=== PATIENT | male | born 1980 | race African-American/Black ===

== ENCOUNTER 2022-08-25 22:45 | Emergency (ER) | payer OTHER, SELFPAY ==
[2022-08-25 22:47] VITALS: BP 168/103; PULSE 105; RESP 16; TEMP 36.6; O2SAT 98; BMI 39.1
--- NOTE | 2022-08-25 23:20 | EX.ED.DYSGE1 ---
HPI History of Present Illness Chief Complaint: Seizure Informant: patient and spouse/S.O. Narrative Narrative: Patient is a 42-year-old male with history of possible sleep apnea (never officially diagnosed) presenting after an episode of seizure-like activity. 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 He was seen on the couch with his daughter and his was talking to them. Suddenly his eyes rolled back into his head and his states he was just shaking all over including his head. He then lurched forward and fell off the couch. Patient then sprang up and walked outside into the cold air. states he did not speak the entire time. The whole episode lasted for 2 minutes and the shaking itself was only couple seconds. Patient states he remembers hearing his and daughter call out to him but could not respond. He states he just felt really hot when he was on the ground and then went outside to cool off. His wanted him to be checked out. Patient denies any history of any seizure activity. He states he feels fine now. Is no other complaints at this time [facility] Medical History Smoker Home Medications ferrous sulfate 325 mg (65 mg iron) tablet 325 mg PO BID #30 tabs 08/26/22 [Rx Last Taken Unknown] omeprazole 20 mg capsule,delayed release 20 mg PO BID #60 caps 08/26/22 [Rx Last Taken Unknown] Allergy/AdvReac Type Severity Reaction Status Date / Time No Known Allergies Allergy Verified 08/25/22 22:51 Social History Smoking Status: Current every day smoker tobacco type: e-cigarettes ROS ROS ED Constitutional Constitutional ED: Reports other Details: Syncopal episode versus seizure-like activity ; Denies chills or fever(s) Eyes Eyes: Denies change in vision ENT ENT ED: Denies ear pain, rhinorrhea or sore throat Cardiovascular Cardiovascular: Denies chest pain or palpitations Respiratory/Chest Respiratory/Chest: Denies cough or dyspnea Gastrointestinal Gastrointestinal: Denies abdominal pain, melena, nausea or vomiting Genitourinary Genitourinary ED: Denies dysuria or hematuria Musculoskeletal Musculoskeletal: Denies arthralgias or myalgias Integumentary Denies rash Neurologic Neurologic: Denies headache(s) or weakness Psychiatric Psychiatric: Denies anxiety Hematologic/Lymphatic Hematologic/Lymphatic: Denies easy bleeding or easy bruising EXAM Physical Exam Const Vital Signs: 08/25/22 22:47 08/26/22 00:38 Temperature 97.8 F Temperature Source Temporal Pulse Rate 105 H Respiratory Rate 16 Blood Pressure 168/103 H Blood Pressure Mean 124 Pulse Ox 98 99 Oxygen Delivery Method Room Air Room Air Positive well nourished and well developed General Appearance ED: well developed and NAD; Negative for pallor HEENT Reports dry mucous membranes Mouth ED: Yes dry mucous membranes Mouth: dry mucous membranes Eyes PERRL and EOMs intact bilaterally Neck supple and no JVD Chest Wall inspection of chest normal and palpation of chest normal Resp normal respiratory effort and clear to auscultation bilaterally Cardio regular rate, regular rhythm and no murmurs GI normal to inspection, nondistended, normoactive bowel sounds and non-tender Palpation: soft; Negative for guarding Extremity normal to inspection General Extremety ED: Negative for edema or tenderness General Extremity: Negative for edema Neuro oriented x3, CN's II-XII intact bilaterally and no sensory deficits noted Sensorium / Orientation: alert Motor Exam: strength 5/5 throughout; Negative for general weakness Psych mental status grossly normal Skin no wounds General Skin Exam: Negative for pallor MDM MDM MDM Narrative Medical decision making narrative: Patient is evaluated for an episode of his eyes rolling back and questionable seizure activity versus a syncopal episode. Patient did not have an associated postictal phase and remembers the event. His did state that he was shaking all over. Its not clear if this was truly seizure activity versus myoclonic jerks. Patient does not receive regular medical care. Cardiac work-up for potential syncopal episode especially while sitting down as well as a CT of the brain is obtained. CT of the brain does not show any acute process. Patient CBC is remarkable for microcytic anemia however it is mild. Do not think this causes presentation today. CMP unremarkable. Patient's urinalysis is normal. Alcohol level is mildly elevated consistent patient having some beers throughout the day which he had previously told me about. Clinically patient does not appear intoxicated. Patient is a normal neurologic exam. No further episodes while in the emergency room. Patient is given a liter of IV fluids as he is mildly tachycardic upon arrival. Patient is a high red meat diet and when asked about any black or blood in her stool. Patient states that a couple weeks ago he was having some black stools and does get intermittent heartburn. He is not currently having any dark stools and has normal BUN to creatinine ratio. Patient will be started on iron supplement as well as a PPI and given referral for GI. He is also given a referral for primary care doctor. At this time I do not think patient requires admission to the hospital. I do think you benefit from outpatient GI as well as primary care follow-up. Patient agreeable this plan of care. Patient remains hemodynamically stable in the emergency room. Counseled on results and plan of care. Patient verbalizes agreement with this. Lab Data Attestation: I reviewed the patient's lab results. Labs: Laboratory Results - last 24 hr 08/25/22 08/25/22 08/25/22 23:23 23:23 23:26 WBC 8.7 RBC 5.06 Hgb 11.7 L Hct 38.5 L MCV 76.1 L MCH 23.1 L MCHC 30.4 L RDW Std Deviation 55.0 H RDW Coeff of Chuy 20.6 H Plt Count 422 MPV 9.4 Immature Gran % (Auto) 0.800 Neut % (Auto) 61.9 Lymph % (Auto) 26.7 Troup % (Auto) 8.4 Eos % (Auto) 1.3 Baso % (Auto) 0.9 Absolute Neuts (auto) 5.4 Absolute Lymphs (auto) 2.33 Nucleated RBC % 0 Anisocytosis 2+ Microcytosis 1+ Sodium 137 Potassium 3.4 L Chloride 105 Carbon Dioxide 22.0 Anion Gap 10 BUN 13 Creatinine 1.15 Estim Creat Clear Calc 81.97 Est GFR (MDRD) Af Amer 89 Est GFR (MDRD) Non-Af 73 BUN/Creatinine Ratio 11.3 Glucose 116 H Calcium 8.6 Total Bilirubin 0.20 AST 22 ALT 34 Alkaline Phosphatase 76 Troponin I High Sens 6 Total Protein 7.8 Albumin 4.0 Globulin 3.8 Albumin/Globulin Ratio 1.1 Urine Color Urine Clarity Urine pH Ur Specific [place] Urine Protein Urine Glucose (UA) Urine Ketones Urine Occult Blood Urine Nitrite Urine Bilirubin Urine Urobilinogen Ur Leukocyte Esterase Urine RBC Urine WBC Ur Squamous Epith Cells Urine Bacteria Urine Mucus Ethyl Alcohol 67.0 08/26/22 08/26/22 00:10 01:57 WBC RBC Hgb Hct MCV MCH MCHC RDW Std Deviation RDW Coeff of Chuy Plt Count MPV Immature Gran % (Auto) Neut % (Auto) Lymph % (Auto) Troup % (Auto) Eos % (Auto) Baso % (Auto) Absolute Neuts (auto) Absolute Lymphs (auto) Nucleated RBC % Anisocytosis Microcytosis Sodium Potassium Chloride Carbon Dioxide Anion Gap BUN Creatinine Estim Creat Clear Calc Est GFR (MDRD) Af Amer Est GFR (MDRD) Non-Af BUN/Creatinine Ratio Glucose Calcium Total Bilirubin AST ALT Alkaline Phosphatase Troponin I High Sens 7 Total Protein Albumin Globulin Albumin/Globulin Ratio Urine Color Yellow Urine Clarity Clear Urine pH 6.5 Ur Specific [place] 1.010 Urine Protein Negative Urine Glucose (UA) Normal Urine Ketones Negative Urine Occult Blood Negative Urine Nitrite Negative Urine Bilirubin Negative Urine Urobilinogen Normal Ur Leukocyte Esterase Negative Urine RBC 0 SEEN Urine WBC 0 SEEN Ur Squamous Epith Cells 0 SEEN Urine Bacteria 0 SEEN Urine Mucus 0 SEEN Ethyl Alcohol Radiography Chest X-Ray - ED: 2 View, Read by ED Physician, Read by Radiologist and Normal Diagnostic Testing: Clinical Impression(s) from Imaging Studies Chest X-Ray 08/25/22 23:59 IMPRESSION: No radiographic evidence of acute cardiopulmonary disease. Electronically Signed: Michael Reed MD at 0:16 EST , Brain CT 08/26/22 00:00 IMPRESSION: Negative head/brain CT without intravenous contrast. Electronically Signed: Michael Reed MD at 0:16 EST , Rhythm Strip Rhythm Strip: Sinus Rhythm Rate: 89 Ectopy: None EKG Initial EKG: Attestation: I personally reviewed and interpreted this EKG as follows: Interpretation: Sinus Rhythm Comments: Normal sinus rhythm at a rate of 89 bpm Normal axis Normal intervals Normal ST segments Discharge Plan Triage Chief Complaint: Seizure ED Provider: Fernanda Vance Dx/Rx/DC Orders Clinical Impression: Microcytic anemia, Seizure-like activity Instructions: ED Anemia, Iron-Deficiency (Adult), ED Fainting, Uncertain Cause Prescriptions: New ferrous sulfate 325 mg (65 mg iron) tablet 325 mg PO BID Qty: 30 0RF omeprazole 20 mg capsule,delayed release(DR/EC) 20 mg PO BID Qty: 60 0RF Primary Care Provider: Care Physician,No Primary Referrals: Svetlana Sen MD [Med Staff - [employer]] - As soon as possible Friend,AnuragDO [Med Staff - Active Staff] - As soon as possible Care Physician,No Primary [Primary Care Provider] - Activity Restrictions/Additional Instructions: The exact cause of your episode today is not clear. Your work-up was largely normal. You were found to have a slight iron deficiency anemia and given your report of black stools I am worried that you might have a small ulcer or some bleeding in your upper GI tract. For that reason you are started on iron supplements as well as an antacid. You been given a referral for GI doctor as well as her primary care doctor. Please return to the emergency room if you have any progression or recurrent symptoms however at this time I think you are safe to go home. Disposition Disposition: Home, Self Care
--- NOTE | 2022-08-25 23:59 | RAD_ITS ---
EXAM: XR CHEST, 1 VIEW CLINICAL INDICATION: seizure like activity TECHNIQUE: Frontal view of the chest. This report was created using [employer] report generation technology. COMPARISON: None. FINDINGS: LUNGS AND PLEURAL SPACES: Unremarkable. No consolidation or edema. No pneumothorax. No effusion. HEART: Unremarkable. Cardiac silhouette not enlarged. MEDIASTINUM: Central airways and mediastinal contour are unremarkable. BONES/JOINTS: Unremarkable. SOFT TISSUES: Unremarkable. RAD/Chest 1 View (Portable) IMPRESSION: No radiographic evidence of acute cardiopulmonary disease. Electronically Signed: Michael Reed MD at 0:16 EST ,
[2022-08-26] LABS: Absolute Lymphocyte Count 2.33 X10^3/uL (0.83-4.51); Absolute Neutrophil Count 5.4 X10^3/uL (2.0-7.7); Basophil# 0.08 X10^3/uL; Basophil% 0.9 % (0-1); Eosinophil# 0.11 X10^3/uL; Eosinophils% 1.3 % (0-5); Hematocrit 38.5 % (40-54); Hemoglobin 11.7 g/dL (13.0-16.5); Lymphocyte # 2.33 X10^3/ul (0.83-4.51); Lymphocyte % 26.7 % (19-41); Mean Corp Hgb Conc 30.4 g/dL (32-36); Mean Corpuscular Hgb 23.1 pg (27.0-32.0); Mean Corpuscular Volume 76.1 fL (80-94); Mean Platelet Vol. 9.4 fl (6.2-12.0); Monocyte# 0.73 X10^3/uL; Monocyte% 8.4 % (0-10); NRBC Flagged by Analyzer 0 % (0-5); Neutrophil # 5.41 X10^3/uL (2.7-7.7); Neutrophil % 61.9 % (47-70); POSITIVE MORPHOLOGY YES; Platelet Count 422 K/mm3 (150-450); RBC Distribution Width CV 20.6 % (11.6-14.6); Red Blood Count 5.06 M/mm3 (4.6-6.2); White Blood Count 8.7 K/mm3 (4.4-11.0)
--- NOTE | 2022-08-26 | CT_ITS ---
EXAM: CT HEAD WITHOUT INTRAVENOUS CONTRAST CLINICAL INDICATION: seizure like activity TECHNIQUE: Multiple axial images were obtained of the head without intravenous contrast. This CT exam was performed using one or more of the following dose reduction techniques: automated exposure control, adjustment of the mA and/or kV according to patient size, and/or use of iterative reconstruction technique. This report was created using [employer] report generation technology. RADIATION DOSE: CTDIvol = 44.99 mGy, DLP = 846.73 mGy-cm. COMPARISON: None. FINDINGS: BRAIN AND EXTRA-AXIAL SPACES: Unremarkable. No intra- or extra-axial hemorrhage. No evidence of acute infarct. No intracranial mass or mass effect. There is preservation of the leary/white matter interface. Posterior fossa structures are unremarkable. Ventricles are appropriate for age. No hydrocephalus. Basal cisterns are patent. BONES/JOINTS: Unremarkable. No discrete lytic or blastic abnormalities. SINUSES: Unremarkable as visualized. Clear. MASTOID AIR CELLS: Unremarkable. Clear. ORBITS: Visualized globes, extraocular muscles, optic nerves and retrobulbar fat appear unremarkable. CT/Brain/Head without Contrast IMPRESSION: Negative head/brain CT without intravenous contrast. Electronically Signed: Michael Reed MD at 0:16 EST ,
[2022-08-26 00:04] LABS: Differential Indicated SCAN CRITERIA MET
[2022-08-26] MEDS: 0.9% Normal Saline 1,000 ML 1000 ML IV (00:25)
[2022-08-26 00:32] LABS: ALB/GLOB Ratio 1.1 RATIO (0.9-2.4); AST(SGOT) 22 U/L (15-37); Alanine Aminotransfer ALT/SGPT 34 U/L (16-61); Alkaline Phosphatase 76 U/L (45-117); Anion Gap 10 (5-15); BUN 13 mg/dL (7-18); BUN/Creat Ratio 11.3 RATIO (10-20); Calcium,Total 8.6 mg/dL (8.5-10.1); Chloride 105 mmol/L (98-107); Creatinine, Serum 1.15 mg/dL (0.70-1.30); EST Glomerular Filtration Rate 73 mL/min (>60); Est Glom Filt Rate - Afr Amer 89 mL/min (>60); Estimated Creatinine Clearance 81.97 ml/min; Globulin 3.8 g/dL (2.2-4.2); Glucose 116 mg/dL (74-106); Potassium 3.4 mmol/L (3.5-5.1); Protein, Total 7.8 g/dL (6.4-8.2); Sodium Level 137 mmol/L (136-145); Troponin-I HS (w/2H Reflex) 6 pg/mL (3.0-78.0)
[2022-08-26 00:38] VITALS: O2SAT 99
[2022-08-26 00:40] LABS: Bacteria 0 SEEN /hpf (None Seen); Mucous, Urine 0 SEEN /hpf (<or=2+); Red Blood Cells-Urine 0 SEEN /hpf (0-5); Squamous Epithelial Cells - UA 0 SEEN /hpf (0-5); White Blood Cells 0 SEEN /hpf (0-5)
[2022-08-26 00:48] LABS: Anisocytosis 2+; Microcytosis 1+
[2022-08-26 00:49] LABS: Color, Urine Yellow (Yellow); Glucose, Dipstick Normal (Normal); Ketone-Dipstick Negative (Negative); Leukocyte Esterase-Dipstick Negative /ul (Negative); Nitrite-Dipstick Negative (Negative); Occult Blood-Urine Negative /ul (Negative); Protein-Dipstick Negative (Negative); Urine Bilirubin Dipstick Negative (Negative); Urine Clarity Clear (Clear); Urine Urobilinogen Normal (Normal); Urine pH 6.5 (5.0 - 8.0)
[2022-08-26 01:52] LABS: Reflex Troponin-HS? (from REC) Y
[2022-08-26 02:26] LABS: Troponin-I HS 7 pg/mL (3.0-78.0)
[2022-08-26 02:55] VITALS: BP 150/106; PULSE 76; RESP 14; O2SAT 97
== END 2022-08-26 02:56 | disposition home or self-care (01) ==
PROVIDERS: Emergency Provider Emergency Medicine; Visit Provider Emergency Medicine
DX: R56.9 Unspecified convulsions (principal); D50.9 Iron deficiency anemia, unspecified; F17.290 Nicotine dependence, other tobacco product, uncomplicated
CPT/HCPCS: 70450; 71045; 80053; 81001; 82077; 84484; 85025; 93005; 96360; 96361; 99284; J7030; A4216

== ENCOUNTER 2024-02-16 19:03 | Emergency (ER) | payer OTHER, SELFPAY ==
[2024-02-16 19:04] VITALS: BP 181/116; PULSE 97; RESP 18; TEMP 36.4; O2SAT 99; BMI 37.5
[2024-02-16 19:57] LABS: Bacteria 0 SEEN /hpf (None Seen); Red Blood Cells-Urine 0 SEEN /hpf (0-5); White Blood Cells 0 SEEN /hpf (0-5)
[2024-02-16 20:00] LABS: Color, Urine Yellow (Yellow); Glucose, Dipstick Normal (Normal); Leukocyte Esterase-Dipstick Negative /ul (Negative); Nitrite-Dipstick Negative (Negative); Occult Blood-Urine Negative /ul (Negative); Protein-Dipstick 30 mg/dl (Negative); Urine Clarity Clear (Clear); Urine Urobilinogen Normal (Normal)
[2024-02-16 20:01] LABS: Absolute Lymphocyte Count 1.44 X10^3/uL (0.83-4.51); Absolute Neutrophil Count 6.2 X10^3/uL (2.0-7.7); Basophil# 0.05 X10^3/uL; Basophil% 0.6 % (0-1); Eosinophil# 0.04 X10^3/uL; Eosinophils% 0.5 % (0-5); Hematocrit 44.7 % (40-54); Hemoglobin 13.5 g/dL (13.0-16.5); Lymphocyte # 1.44 X10^3/ul (0.83-4.51); Mean Corp Hgb Conc 30.2 g/dL (32-36); Mean Corpuscular Hgb 23.7 pg (27.0-32.0); Mean Corpuscular Volume 78.4 fL (80-94); Mean Platelet Vol. 9.4 fl (6.2-12.0); Monocyte# 0.75 X10^3/uL; Monocyte% 8.8 % (0-10); NRBC Flagged by Analyzer 0 % (0-5); Neutrophil # 6.18 X10^3/uL (2.7-7.7); Neutrophil % 72.7 % (47-70); Platelet Count 485 K/mm3 (150-450); RBC Distribution Width CV 16.8 % (11.6-14.6); RBC Distribution Width SD 47.1 fl (35.1-43.9); White Blood Count 8.5 K/mm3 (4.4-11.0)
[2024-02-16 20:02] LABS: Urine Bilirubin Dipstick 1 mg/dL (Negative)
[2024-02-16 20:03] LABS: Ketone-Dipstick 150 mg/dl (Negative)
[2024-02-16 20:07] LABS: Mucous, Urine 2+ /hpf (<or=2+); Squamous Epithelial Cells - UA 0-5 SEEN /hpf (0-5)
[2024-02-16 20:28] LABS: ALB/GLOB Ratio 0.8 RATIO (0.9-2.4); AST(SGOT) 19 U/L (15-37); Alanine Aminotransfer ALT/SGPT 33 U/L (16-61); Albumin, Serum 3.9 g/dL (3.2-5.0); Alkaline Phosphatase 98 U/L (45-117); Anion Gap 9 (5-15); BUN 15 mg/dL (7-18); BUN/Creat Ratio 11.8 RATIO (10-20); Calcium,Total 10.1 mg/dL (8.5-10.1); Chloride 99 mmol/L (98-107); Creatinine, Serum 1.27 mg/dL (0.70-1.30); EST Glomerular Filtration Rate 65 mL/min (>60); Est Glom Filt Rate - Afr Amer 79 mL/min (>60); Estimated Creatinine Clearance 91.93 ml/min; Globulin 5.2 g/dL (2.2-4.2); Glucose 115 mg/dL (74-106); Potassium 3.4 mmol/L (3.5-5.1); Protein, Total 9.1 g/dL (6.4-8.2); Sodium Level 134 mmol/L (136-145)
--- NOTE | 2024-02-16 20:32 | CT_ITS ---
We are attempting to reach an attending provider to discuss findings. An addendum with communication details will be sent when the communication is complete. EXAM: CT ABDOMEN AND PELVIS WITH INTRAVENOUS CONTRAST CLINICAL INDICATION: PAIN TECHNIQUE: Helically acquired images were obtained of the abdomen and pelvis with intravenous contrast. This CT exam was performed using one or more of the following dose reduction techniques: automated exposure control, adjustment of the mA and/or kV according to patient size, and/or use of iterative reconstruction technique. CONTRAST: IV 100mL [id number] COMPARISON: No relevant prior studies available. FINDINGS: LOWER THORAX: Unremarkable. Lung bases are clear. No cardiomegaly. No significant pericardial effusion. ABDOMEN: LIVER: Unremarkable. Homogeneous. No focal mass. GALLBLADDER AND BILE DUCTS: Unremarkable. No calcified gallstones. No gallbladder distention or wall edema. No intra- or extrahepatic biliary ductal dilation. PANCREAS: Unremarkable. No focal cystic or solid mass. SPLEEN: Unremarkable. Normal size without focal cystic or solid mass. ADRENALS: Unremarkable. No nodules. KIDNEYS AND URETERS: Unremarkable. Normal renal size and position. No hydronephrosis. STOMACH AND BOWEL: There is thickening of the terminal ileum which may be due to an inflammatory bowel process. There are mildly dilated loops of small bowel proximal to this which may represent a developing obstruction. There is soft tissue seen within the cecum which may represent stool or possibly a cecal mass. This measures roughly 5.0 x 4.0 x 3.6 cm. PELVIS: APPENDIX: A appendix is enlarged in size measuring 1.5 cm. There is mild surrounding formation and fluid. There is an appendicolith within the appendix. BLADDER: Unremarkable. REPRODUCTIVE: Unremarkable as visualized. No mass. ABDOMEN and PELVIS: INTRAPERITONEAL SPACE: Unremarkable. No ascites or other fluid collection. No free air. BONES/JOINTS: Unremarkable. No suspicious lytic or blastic abnormality. SOFT TISSUES: Unremarkable. No discrete abdominal or pelvic wall hernia. VASCULATURE: Unremarkable. Abdominal aorta is non-dilated. LYMPH NODES: Unremarkable. No enlarged lymph nodes. CT/Abdomen/Pelvis W IV Cont ONLY IMPRESSION: 1. Enlarged appendix with surrounding inflammation and appendicolith compatible with acute appendicitis. There is no abscess or perforation. 2. Thickening of the wall of the terminal ileum which may be due to an inflammatory bowel process. There are dilated bowel proximal to this point which may represent developing obstruction. 3. Soft tissue in the cecum which may represent a cecal mass. Further evaluation with colonoscopy may be beneficial. Electronically Signed: Braden Gamboa MD at 21:53 EDT ,
--- NOTE | 2024-02-16 20:34 | ED.VIS.GI ---
HPI <Dr. Damian Sosa, DO - Last Filed: 02/16/24 23:20> HPI - GI History of Present Illness Chief Complaint: Abd Pain Informant: patient Abdominal Pain/Flank Pain Onset: Days (3) Context: Gradual Onset Timing: Continuous and Waxes and wanes Quality: Cramping, Sharp and Stabbing Location: Diffuse Worsened by: Food Relieved by: Remaining Still Nausea/Vomiting/Emesis GI Symptom: Positive for Nausea and Vomiting Quality: Positive for Nonbilious; Negative for Blood streaks, Coffee ground or Hematemesis Diarrhea/Melena/Hematochezia GI Symptom: Positive for Diarrhea Associated Symptoms Associated Symptoms: Negative for Dysuria, Frequency or Hematuria Narrative Narrative: Patient presents with abdominal pain that has been getting progressively worse over the past 3 days. Patient states that has been waxing and waning. Patient describes it as cramping, sharp, and stabbing. Patient states it is diffuse across his abdomen. Patient states that 3 days ago he went out to eat with his and some friends. Patient states he had some shrimp and nobody else had the shrimp. Patient states that his pain has gotten worse since that time. Patient states he has tried to eat at home but has not been able to keep anything down. Patient states anytime he would try to eat, he would vomit everything back up. Patient states he tried to take some Tylenol and eat a pizza crust with that. Patient states that he vomited all of that shortly after trying to eat. Patient denies any hematemesis or coffee-ground emesis. Patient admits to some diarrhea. Patient states that today he noted his stools were black. Patient states he did take some Pepto-Bismol yesterday. Patient admits to some subjective fevers and chills. Patient denies any urinary complaints. [facility] <Dr. Damian Sosa, DO - Last Filed: 02/16/24 23:20> [facility] Medical History Nausea vomiting and diarrhea Abdominal pain Back pain Smoker Home Medications ?Medication ?Instructions ?Recorded ?Last Taken ?Type NK 02/16/24 Unknown History Allergy/AdvReac Type Severity Reaction Status Date / Time No Known Allergies Allergy Verified 02/16/24 19:04 Family History (Updated 02/16/24 @ 15:02 by Thalia Chilel) Other Heart disease Surgical History (Updated 02/16/24 @ 20:[address] Damian Sosa DO) Hx of hand surgery Social History Smoking Status: Current every day smoker tobacco type: e-cigarettes ROS <Dr. Damian Sosa DO - Last Filed: 02/16/24 23:20> ROS ED Constitutional Constitutional ED: Reports chills, fever(s) and subjective Eyes Eyes: Denies blurry vision or change in vision ENT ENT ED: Denies rhinorrhea or sore throat Cardiovascular Cardiovascular: Denies chest pain or palpitations Respiratory/Chest Respiratory/Chest: Denies cough or dyspnea Gastrointestinal Gastrointestinal: Reports abdominal pain, diarrhea, nausea and vomiting Genitourinary Genitourinary ED: Denies dysuria or hematuria Musculoskeletal Musculoskeletal: Denies back pain or neck pain Integumentary Denies abscess or rash Neurologic Neurologic: Denies headache(s) or weakness Allergic/Immunologic Allergic/Immunologic ED: Denies mouth swelling or urticaria EXAM <Dr. Damian Sosa DO - Last Filed: 02/16/24 23:20> Physical Exam Const Vital Signs: 02/16/24 19:04 02/16/24 21:03 02/16/24 22:23 Temperature 97.5 F L 97.9 F Temperature Source Temporal Temporal Pulse Rate 97 80 95 Respiratory Rate 18 16 Blood Pressure 181/116 H 177/111 H 193/122 H Blood Pressure Mean 137 133 145 Blood Pressure Source Monitor Blood Pressure Position Supine Blood Pressure Location Right Arm Pulse Ox 99 98 94 Oxygen Delivery Method Room Air Room Air Room Air 02/16/24 23:00 Temperature Temperature Source Pulse Rate 75 Respiratory Rate 18 Blood Pressure 172/98 H Blood Pressure Mean 122 Blood Pressure Source Blood Pressure Position Blood Pressure Location Pulse Ox 98 Oxygen Delivery Method Room Air Positive well nourished and well developed General Appearance ED: well developed and NAD HEENT Reports moist mucous membranes Neck supple and no JVD Resp normal respiratory effort and clear to auscultation bilaterally Cardio regular rate and regular rhythm GI non-distended Palpation: soft and tender epigastric, LLQ, RLQ, LUQ, RUQ, periumbilical and suprapubic; Negative for guarding or rebound tenderness present Neuro CN's II-XII intact bilaterally, moves all extremities and no sensory deficits noted Sensorium / Orientation: alert Motor Exam: strength 5/5 throughout Psych mental status grossly normal <Dr. Zachary Tian, DO - Last Filed: 02/17/24 00:42> Physical Exam Const Vital Signs: 02/16/24 19:04 02/16/24 21:03 02/16/24 22:23 Temperature 97.5 F L 97.9 F Temperature Source Temporal Temporal Pulse Rate 97 80 95 Respiratory Rate 18 16 Blood Pressure 181/116 H 177/111 H 193/122 H Blood Pressure Mean 137 133 145 Blood Pressure Source Monitor Blood Pressure Position Supine Blood Pressure Location Right Arm Pulse Ox 99 98 94 Oxygen Delivery Method Room Air Room Air Room Air 02/16/24 23:00 Temperature Temperature Source Pulse Rate 75 Respiratory Rate 18 Blood Pressure 172/98 H Blood Pressure Mean 122 Blood Pressure Source Blood Pressure Position Blood Pressure Location Pulse Ox 98 Oxygen Delivery Method Room Air MDM <Dr. Damian Sosa, DO - Last Filed: 02/16/24 23:20> MDM MDM Narrative Medical decision making narrative: Differential diagnosis includes bowel obstruction, perforation, gastroenteritis, peptic ulcer disease, duodenal ulcer, pancreatitis, electrolyte abnormality, dehydration, and urinary tract infection. CBC will be obtained to assess for leukocytosis and anemia. Comprehensive metabolic profile will be obtained to assess for hepatic function, renal function, and electrolyte abnormality. Lipase will be obtained to assess for pancreatitis. Urinalysis will be obtained to assess for urinary tract infection and hematuria. CT scan of the abdomen pelvis will be obtained to assess for bowel obstruction, perforation, and pancreatitis. Lab Data Attestation: I reviewed the patient's lab results. Lab results narrative: CBC was reviewed and was essentially within normal limits. Comprehensive metabolic profile was reviewed and was within normal limits. Urinalysis was reviewed. There is no evidence of urinary tract infection or hematuria. Urine ketones were 150. Lipase was reviewed and was normal at 30. Labs: Laboratory Results - last 24 hr 02/16/24 19:46 WBC 8.5 RBC 5.70 Hgb 13.5 Hct 44.7 MCV 78.4 L MCH 23.7 L MCHC 30.2 L RDW Std Deviation 47.1 H RDW Coeff of Chuy 16.8 H Plt Count 485 H MPV 9.4 Immature Gran % (Auto) 0.400 Neut % (Auto) 72.7 H Lymph % (Auto) 17.0 L [place] % (Auto) 8.8 Eos % (Auto) 0.5 Baso % (Auto) 0.6 Absolute Neuts (auto) 6.2 Absolute Lymphs (auto) 1.44 Nucleated RBC % 0 Sodium 134 L Potassium 3.4 L Chloride 99 Carbon Dioxide 26.0 Anion Gap 9 BUN 15 Creatinine 1.27 Estim Creat Clear Calc 91.93 Est GFR (MDRD) Af Amer 79 Est GFR (MDRD) Non-Af 65 BUN/Creatinine Ratio 11.8 Glucose 115 H Calcium 10.1 Total Bilirubin 0.70 AST 19 ALT 33 Alkaline Phosphatase 98 Total Protein 9.1 H Albumin 3.9 Globulin 5.2 H Albumin/Globulin Ratio 0.8 L Lipase 30 Urine Color Yellow Urine Clarity Clear Urine pH 6.0 Ur Specific [place] 1.020 Urine Protein 30 H Urine Glucose (UA) Normal Urine Ketones 150 A* Urine Occult Blood Negative Urine Nitrite Negative Urine Bilirubin 1 H Urine Urobilinogen Normal Ur Leukocyte Esterase Negative Urine RBC 0 SEEN Urine WBC 0 SEEN Ur Squamous Epith Cells 0-5 SEEN Urine Bacteria 0 SEEN Urine Mucus 2+ Radiography Diagnostic Testing: Clinical Impression(s) from Imaging Studies Abdomen/Pelvis CT 02/16/24 20:32 IMPRESSION: 1. Enlarged appendix with surrounding inflammation and appendicolith compatible with acute appendicitis. There is no abscess or perforation. 2. Thickening of the wall of the terminal ileum which may be due to an inflammatory bowel process. There are dilated bowel proximal to this point which may represent developing obstruction. 3. Soft tissue in the cecum which may represent a cecal mass. Further evaluation with colonoscopy may be beneficial. Electronically Signed: Braden Gamboa MD at 21:53 EDT , ADDENDUM: 02/16/24 5461 IMPRESSION: 1. Enlarged appendix with surrounding inflammation and appendicolith compatible with acute appendicitis. There is no abscess or perforation. 2. Thickening of the wall of the terminal ileum which may be due to an inflammatory bowel process. There are dilated bowel proximal to this point which may represent developing obstruction. 3. Soft tissue in the cecum which may represent a cecal mass. Further evaluation with colonoscopy may be beneficial. N.B. : The above Results were Read Back by Braden Gamboa MD to Damian Sosa DO, and understanding confirmed on 02/16/2024 21:57:05 (ET). Electronically Signed: Braden Gamboa MD at 21:53 EDT , CT scan of the abdomen pelvis was obtained. There is an enlarged appendix with surrounding inflammation and appendicolith compatible with acute appendicitis. There is thickening of the wall of the terminal ileum which may be due to an inflammatory bowel process. There are dilated bowel loops proximal to this point which may represent a developing obstruction. There is also soft tissue in the cecum which may represent a cecal mass. This was interpreted by the radiologist was also independently reviewed by myself. Management Discussion w/another healthcare provider: [facility] (Dr. Wasserman) Treatment and Re-Evaluation :: Patient was given IV fluids, Bentyl, and Zofran. Patient was resting comfortably on reevaluation. Patient was advised of his findings. Case was discussed with Dr. Wasserman from general surgery. He will be in to evaluate the patient. Patient was given a dose of Zosyn here. Dr. Wsaserman was in to evaluate the patient and reviewed the CT scan. He felt that the cecal mass was likely a cancer and there were several enlarged lymph nodes. He noted that the lymph nodes were abutting the ureter, SMA, and pancreas. He recommended transfer to tertiary care center due to the likelihood of metastatic disease. [facility] was contacted for possible transfer to colorectal surgery. <Dr. Zachary Tian DO - Last Filed: 02/17/24 00:42> [facility] Lab Data Labs: Laboratory Results - last 24 hr 02/16/24 19:46 WBC 8.5 RBC 5.70 Hgb 13.5 Hct 44.7 MCV 78.4 L MCH 23.7 L MCHC 30.2 L RDW Std Deviation 47.1 H RDW Coeff of Chuy 16.8 H Plt Count 485 H MPV 9.4 Immature Gran % (Auto) 0.400 Neut % (Auto) 72.7 H Lymph % (Auto) 17.0 L [place] % (Auto) 8.8 Eos % (Auto) 0.5 Baso % (Auto) 0.6 Absolute Neuts (auto) 6.2 Absolute Lymphs (auto) 1.44 Nucleated RBC % 0 Sodium 134 L Potassium 3.4 L Chloride 99 Carbon Dioxide 26.0 Anion Gap 9 BUN 15 Creatinine 1.27 Estim Creat Clear Calc 91.93 Est GFR (MDRD) Af Amer 79 Est GFR (MDRD) Non-Af 65 BUN/Creatinine Ratio 11.8 Glucose 115 H Calcium 10.1 Total Bilirubin 0.70 AST 19 ALT 33 Alkaline Phosphatase 98 Total Protein 9.1 H Albumin 3.9 Globulin 5.2 H Albumin/Globulin Ratio 0.8 L Lipase 30 Urine Color Yellow Urine Clarity Clear Urine pH 6.0 Ur Specific [place] 1.020 Urine Protein 30 H Urine Glucose (UA) Normal Urine Ketones 150 A* Urine Occult Blood Negative Urine Nitrite Negative Urine Bilirubin 1 H Urine Urobilinogen Normal Ur Leukocyte Esterase Negative Urine RBC 0 SEEN Urine WBC 0 SEEN Ur Squamous Epith Cells 0-5 SEEN Urine Bacteria 0 SEEN Urine Mucus 2+ Radiography Diagnostic Testing: Clinical Impression(s) from Imaging Studies Abdomen/Pelvis CT 02/16/24 20:32 IMPRESSION: 1. Enlarged appendix with surrounding inflammation and appendicolith compatible with acute appendicitis. There is no abscess or perforation. 2. Thickening of the wall of the terminal ileum which may be due to an inflammatory bowel process. There are dilated bowel proximal to this point which may represent developing obstruction. 3. Soft tissue in the cecum which may represent a cecal mass. Further evaluation with colonoscopy may be beneficial. Electronically Signed: Braden Gamboa MD at 21:53 EDT , ADDENDUM: 02/16/24 1518 IMPRESSION: 1. Enlarged appendix with surrounding inflammation and appendicolith compatible with acute appendicitis. There is no abscess or perforation. 2. Thickening of the wall of the terminal ileum which may be due to an inflammatory bowel process. There are dilated bowel proximal to this point which may represent developing obstruction. 3. Soft tissue in the cecum which may represent a cecal mass. Further evaluation with colonoscopy may be beneficial. N.B. : The above Results were Read Back by Braden Gamboa MD to Damian Sosa , DO, and understanding confirmed on 02/16/2024 21:57:05 (ET). Electronically Signed: Braden Gamboa MD at 21:53 EDT , Treatment and Re-Evaluation :: Patient was given IV fluids, Bentyl, and Zofran. Patient was resting comfortably on reevaluation. Patient was advised of his findings. Case was discussed with Dr. Wasserman from general surgery. He will be in to evaluate the patient. Patient was given a dose of Zosyn here. Dr. Wasserman was in to evaluate the patient and reviewed the CT scan. He felt that the cecal mass was likely a cancer and there were several enlarged lymph nodes. He noted that the lymph nodes were abutting the ureter, SMA, and pancreas. He recommended transfer to tertiary care center due to the likelihood of metastatic disease. [facility] was contacted for possible transfer to colorectal surgery. The patient was signed out to me while awaiting potential transfer to a tertiary center. The case was discussed with surgeon Dr. Cervantes. She feels that the patient would best be suited by being transfer ER to ER that way he can be evaluated and she can decide what service such as general surgery versus colorectal surgery he needs to be admitted to. Patient was informed of the plan of care they agreeable to it and will be transferred to the tertiary center in stable condition Discharge Plan Triage Chief Complaint: Abd Pain ED Provider: Damian Sosa Dx/Rx/DC Orders Clinical Impression: Acute appendicitis, Abdominal pain, Terminal ileitis Prescriptions: No Action NK Primary Care Provider: Care Physician,No Primary Referrals: Care Physician,No Primary [Primary Care Provider] - Print Language: Tajik Disposition Disposition: Acute Care Hospital Discharge Location: [facility]
[2024-02-16 20:59] LABS: Lipase 30 U/L (13-75)
[2024-02-16 21:03] VITALS: BP 177/111; PULSE 80; O2SAT 98
[2024-02-16] MEDS: Ondansetron 4 MG/2 ML Vial IV (21:09)
[2024-02-16] MEDS: 0.9% Normal Saline (1000mL) 1,000 ML 999 ML IV (21:09)
[2024-02-16] MEDS: Dicyclomine 20 MG/2 ML Vial IM (21:10)
[2024-02-16] MEDS: Piperacil/Tazobactam 4.5 GM in 0.9% Normal Saline (100mL MB+) 100 ML IV (22:20)
[2024-02-16 22:23] VITALS: BP 193/122; PULSE 95; RESP 16; TEMP 36.6; O2SAT 94; BMI 37.5
[2024-02-16 23:00] VITALS: BP 172/98; PULSE 75; RESP 18; O2SAT 98
--- NOTE | 2024-02-16 23:11 | EX.PCM.CON.S ---
Assessment & Plan Assessment/Plan (1) Mass of cecum: PLAN: The patient is having abdominal pain and vomiting that started yesterday. CT scan revealed dilated small bowel with potential obstruction. The terminal ileum is dilated and thickened. The patient has a mass in the cecum as well as dilated appendix. The patient also has lymphadenopathy in the central mesentery with a very enlarged lymph node anterior to the fourth portion of the duodenum. I am highly concerned that this represents malignancy that is causing partial obstruction and now is causing possible appendicitis. The patient has lymphadenopathy with an enlarged lymph node anterior to the fourth portion of the duodenum and it is abutting the SMA. The other lymph nodes are also abutting the right ureter. I do not have urology for stents or ureteral repair. I would recommend transfer to a tertiary center due to likely metastatic disease. I did advise the patient that I could perform surgery to resect and resolve the obstruction but I did discuss the risks of ureteral injury and the mass more midline. The patient and his spouse both agreed that a tertiary center would be a good idea. Daniel Wasserman MD Pager: [facility] [address] [place] [address], [address] [place] [address] Office: HPI Consult Data Date of Consult: 02/16/24 HPI Narrative HPI Narrative: RODERICK ESPARZA, is a 43 M who presents with abdominal pain and nausea and vomiting. Patient reports that abdominal pain started yesterday. Upon further questioning the patient does state that he has had intermittent aches and cramps on the right side for years.Upon further questioning the patient does state that he has had intermittent aches and cramps on the right side for years.Patient states that he has never had a colonoscopy.He says the pain worsened last night and he started vomiting yesterday. He came into the hospital this morning. He denies fevers or chills. [facility] Medical History Nausea vomiting and diarrhea Abdominal pain Back pain Smoker Home Medications ?Medication ?Instructions ?Recorded ?Last Taken ?Type NK 02/16/24 Unknown History Allergy/AdvReac Type Severity Reaction Status Date / Time No Known Allergies Allergy Verified 02/16/24 19:04 Family History (Updated 02/16/24 @ 15:02 by Thalia Chilel) Other Heart disease Surgical History (Updated 02/16/24 @ 20:[address] Damian Sosa DO) Hx of hand surgery Social History Smoking Status: Current every day smoker tobacco type: e-cigarettes ROS Constitutional Constitutional: Denies chills, fatigue or fever(s) Eyes Eyes: Denies blurry vision ENT HEENT: Denies abnormal hearing Cardiovascular Cardiovascular: Denies chest pain Respiratory/Chest Respiratory/Chest: Denies cough or dyspnea Gastrointestinal Gastrointestinal: Reports abdominal pain, constipation, nausea and vomiting Genitourinary Genitourinary: Denies change in urinary stream Musculoskeletal Musculoskeletal: Denies abnormal gait Integumentary Integumentary: Denies jaundice Neurologic Neurologic: Denies dizziness Psychiatric Psychiatric: Denies depression Endocrine Endocrinology: Denies heat intolerance Physical Exam Const alert and oriented x3 HEENT normocephalic Eyes PERRL Chest inspection of chest normal Resp normal respiratory effort Cardio Rate: regular rate Rhythm: regular rhythm GI soft to palpation and non-distended Palpation: tender RLQ Extremity normal to inspection Neuro CN's II-XII intact bilaterally Lab / Micro Data 02/16/24 19:46 02/16/24 19:46 Labs: Laboratory Results - last 24 hr 02/16/24 19:46: WBC 8.5, RBC 5.70, Hgb 13.5, Hct 44.7, MCV 78.4 L, MCH 23.7 L, MCHC 30.2 L, RDW Std Deviation 47.1 H, RDW Coeff of Chuy 16.8 H, Plt Count 485 H, MPV 9.4, Immature Gran % (Auto) 0.400, Neut % (Auto) 72.7 H, Lymph % (Auto) 17.0 L, [place] % (Auto) 8.8, Eos % (Auto) 0.5, Baso % (Auto) 0.6, Absolute Neuts (auto) 6.2, Absolute Lymphs (auto) 1.44, Nucleated RBC % 0, Sodium 134 L, Potassium 3.4 L, Chloride 99, Carbon Dioxide 26.0, Anion Gap 9, BUN 15, Creatinine 1.27, Estim Creat Clear Calc 91.93, Est GFR (MDRD) Af Amer 79, Est GFR (MDRD) Non-Af 65, BUN/Creatinine Ratio 11.8, Glucose 115 H, Calcium 10.1, Total Bilirubin 0.70, AST 19, ALT 33, Alkaline Phosphatase 98, Total Protein 9.1 H, Albumin 3.9, Globulin 5.2 H, Albumin/Globulin Ratio 0.8 L, Lipase 30, Urine Color Yellow, Urine Clarity Clear, Urine pH 6.0, Ur Specific [place] 1.020, Urine Protein 30 H, Urine Glucose (UA) Normal, Urine Ketones 150 A*, Urine Occult Blood Negative, Urine Nitrite Negative, Urine Bilirubin 1 H, Urine Urobilinogen Normal, Ur Leukocyte Esterase Negative, Urine RBC 0 SEEN, Urine WBC 0 SEEN, Ur Squamous Epith Cells 0-5 SEEN, Urine Bacteria 0 SEEN, Urine Mucus 2+ Imaging Radiology Impression Abdomen/Pelvis CT 02/16/24 20:32 IMPRESSION: 1. Enlarged appendix with surrounding inflammation and appendicolith compatible with acute appendicitis. There is no abscess or perforation. 2. Thickening of the wall of the terminal ileum which may be due to an inflammatory bowel process. There are dilated bowel proximal to this point which may represent developing obstruction. 3. Soft tissue in the cecum which may represent a cecal mass. Further evaluation with colonoscopy may be beneficial. Electronically Signed: Braden Gamboa MD at 21:53 EDT , ADDENDUM: 02/16/24 2203 IMPRESSION: 1. Enlarged appendix with surrounding inflammation and appendicolith compatible with acute appendicitis. There is no abscess or perforation. 2. Thickening of the wall of the terminal ileum which may be due to an inflammatory bowel process. There are dilated bowel proximal to this point which may represent developing obstruction. 3. Soft tissue in the cecum which may represent a cecal mass. Further evaluation with colonoscopy may be beneficial. N.B. : The above Results were Read Back by Braden Gamboa MD to Damian Sosa DO, and understanding confirmed on 02/16/2024 21:57:05 (ET). Electronically Signed: Braden Gamboa MD at 21:53 EDT ,
[2024-02-16] MEDS: Calcium Carbonate 500 MG Tablet PO (23:54)
[2024-02-17] MEDS: HYDROmorphone 1 MG/ML Syringe IV ×2 (00:38→01:40)
[2024-02-17 01:00] VITALS: BP 170/110
[2024-02-17 01:44] VITALS: BP 170/110; PULSE 91; RESP 18; TEMP 36.2; O2SAT 93
== END 2024-02-17 01:45 | disposition short-term general hospital (02) ==
PROVIDERS: Emergency Provider Emergency Medicine; Visit Provider Emergency Medicine
DX: K35.80 Unspecified acute appendicitis (principal); K63.9 Disease of intestine, unspecified; R10.9 Unspecified abdominal pain; R59.0 Localized enlarged lymph nodes; R19.7 Diarrhea, unspecified; R11.2 Nausea with vomiting, unspecified; F17.290 Nicotine dependence, other tobacco product, uncomplicated
CPT/HCPCS: 74177; 80053; 81001; 83690; 85025; 96361; 96365; 96372; 96375; 96376; 99283; J7030; Q9967; A4216; J2405

== ENCOUNTER 2024-02-27 03:17 | Emergency (ER) | payer OTHER, SELFPAY ==
[2024-02-27] VITALS (10 sets, daily range): BP systolic 137–180; BP diastolic 68–111; PULSE 76–91; RESP 16–18; TEMP 36.2–36.7; O2SAT 96–100; BMI 37.6
--- NOTE | 2024-02-27 03:26 | CT_ITS ---
EXAM: CT ABDOMEN AND PELVIS WITH INTRAVENOUS CONTRAST CLINICAL INDICATION: abdominal pain TECHNIQUE: Helically acquired images were obtained of the abdomen and pelvis with intravenous contrast. This CT exam was performed using one or more of the following dose reduction techniques: automated exposure control, adjustment of the mA and/or kV according to patient size, and/or use of iterative reconstruction technique. CONTRAST: 100 cc of Isovue-370 IV. RADIATION DOSE: CTDIvol = 18.64 mGy, DLP = 1324.76 mGy-cm COMPARISON: 02/16/2024. FINDINGS: LOWER THORAX: Unremarkable. Lung bases are clear. No cardiomegaly. No significant pericardial effusion. ABDOMEN: LIVER: Unremarkable. Homogeneous. No focal mass. GALLBLADDER AND BILE DUCTS: Unremarkable. No calcified gallstones. No gallbladder distention or wall edema. No intra- or extrahepatic biliary ductal dilation. PANCREAS: Unremarkable. No focal cystic or solid mass. SPLEEN: Unremarkable. Normal size without focal cystic or solid mass. ADRENALS: Unremarkable. No nodules. KIDNEYS AND URETERS: Unremarkable. Normal renal size and position. No hydronephrosis. STOMACH AND BOWEL: Mid and distal small bowel loops are distended up to 4 cm maximum diameter down to the level of the ileocecal valve. No focal inflammatory change. PELVIS: APPENDIX: Heterogeneous enhancing cecal mass measuring 5.8 x 5.0 x 5.1 cm that involves the ileocecal bowel and the orifice of the appendix. Adjacent adenopathy with lymph nodes measuring up to 2.5 cm in diameter. The appendix remains enlarged measuring approximately 1.6 cm in diameter. Mild surrounding edema similar to the prior exam. Small appendicoliths in the lumen of the appendix. BLADDER: Unremarkable. REPRODUCTIVE: Unremarkable as visualized. No mass. ABDOMEN and PELVIS: INTRAPERITONEAL SPACE: Unremarkable. No ascites or other fluid collection. No free air. BONES/JOINTS: Unremarkable. No suspicious lytic or blastic abnormality. SOFT TISSUES: Small fat-containing paraumbilical hernia. VASCULATURE: Unremarkable. Abdominal aorta is non-dilated. LYMPH NODES: Enlarged periaortic lymph node adjacent to the left renal artery that measures up to 1.4 cm in diameter may be due to metastatic disease. CT/Abdomen/Pelvis W IV Cont ONLY IMPRESSION: 1. 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 This obstructs the ileocecal valve causing a distal small bowel obstruction. It obstructs the orifice of the appendix accounting for the dilated appendix. 2. Enlarged periaortic lymph node adjacent to the left renal artery that measures up to 1.4 cm in diameter may be due to metastatic disease. 3. Small fat-containing paraumbilical hernia. No bowel involvement. N.B. : The above Results were Read Back by Michael Reed MD to Bsahir Moser DO, and understanding confirmed on 02/27/2024 04:31:49 (ET). Electronically Signed: Michael Reed MD at 4:34 EDT ,
--- NOTE | 2024-02-27 03:32 | EDS_ITS ---
HPI HPI - GI History of Present Illness Chief Complaint: Abd Pain Narrative Narrative: 43-year-old male presenting with abdominal pain. He describes it as diffuse. He states the pain feels crampy and comes in waves. Started last evening and was milder. The weight is increased in frequency and severity. Patient was recently seen here at [facility] and had a CT read which showed dilated small bowel with potential obstruction and noted that there was dilation of the terminal ileum there also appeared to be a cecal mass on the CT and there was noted to be lymphadenopathy in the central mesentery with enlarged lymph nodes. He had a surgical consult here by Dr. Wasserman and is concerned this was cancerous and recommended transfer to tertiary care facility. Patient was sent to [facility]. He was consulted by colorectal surgery who did not think he had appendicitis and this was likely local inflammation secondary to the cecal mass that was found. They apparently did not think he was obstructed. He had a colonoscopy performed which showed a single friable, malignant appearing ulcerated mass in the hepatic flexure. They were unable to pass through this area due to the mass. Patient states that he was ultimately sent home on 02/20/2024. The pain began yesterday. Patient has not had a fever or chills. He states even having bowel movements every day the week. He is not having nausea or vomiting. Denies any black or bloody stools or emesis. PFSH PFSH Medical History Mass of colon Nausea vomiting and diarrhea Abdominal pain Back pain Smoker Home Medications ?Medication ?Instructions ?Recorded ?Last Taken ?Type NK 02/16/24 Unknown History Allergy/AdvReac Type Severity Reaction Status Date / Time No Known Allergies Allergy Verified 02/27/24 03:21 Family History Other Heart disease Surgical History Hx of hand surgery Social History Smoking Status: Former smoker ROS ROS ED Constitutional Constitutional ED: Denies chills, fever(s) or sweats Eyes Eyes: Denies blurry vision or change in vision ENT ENT ED: Denies ear pain or sore throat Cardiovascular Cardiovascular: Denies chest pain, palpitations or racing heartbeat Respiratory/Chest Respiratory/Chest: Denies cough, dyspnea or sputum Gastrointestinal Gastrointestinal: Reports abdominal pain; Denies constipation, diarrhea, nausea or vomiting Genitourinary Genitourinary ED: Denies dysuria, hematuria or urinary frequency Musculoskeletal Musculoskeletal: Denies arthralgias, myalgias or neck pain Integumentary Denies abscess, Abrasions or rash Neurologic Neurologic: Denies headache(s), paresthesias or weakness Psychiatric Psychiatric: Denies anxiety, depression, suicidal ideation or suicidal thoughts Endocrine Endocrinology: Denies polydipsia or polyuria EXAM Physical Exam Const Vital Signs: 02/27/24 03:18 02/27/24 05:18 Temperature 97.1 F L Temperature Source Temporal Pulse Rate 76 81 Respiratory Rate 18 18 Blood Pressure 180/108 H 155/111 H Blood Pressure Mean 132 125 Pulse Ox 100 97 Oxygen Delivery Method Room Air Room Air Positive well nourished General Appearance ED: NAD; Negative for pallor HEENT Reports moist mucous membranes normocephalic Eyes PERRL and EOMs intact bilaterally Resp normal respiratory effort Cardio regular rate and regular rhythm GI Palpation: tender LLQ, RLQ, LUQ and RUQ Neuro CN's II-XII intact bilaterally Sensorium / Orientation: alert Motor Exam: strength 5/5 throughout Psych mental status grossly normal Skin General Skin Exam: Negative for jaundice or pallor MDM MDM MDM Narrative Medical decision making narrative: Patient presenting with abdominal pain. Has a history of cecal mass and also has questionable appendicitis versus bowel obstruction history. Patient presenting with right flank pain. Differential includes colitis, diverticulitis, gastritis, pancreatitis, acute cholecystitis, constipation, appendicitis, UTI, pyelonephritis, calculi, ureteral calculi, bowel obstruction, malignancy, dehydration, electrolyte abnormalities, bowel perforation. Patient medicated with morphine, Zofran, IV fluids. Will obtain CT of the abdomen pelvis with IV contrast. I was able to log into [employer], and I was able to find pertinent medical records available for review to compare to the patient's current lab/imaging/workup. I did see the colonoscopy report which shows they did biopsy of mass of tissue in the hepatic flexure. Does state that they were unable to pass further secondary to the mass. Patient's tumor markers were negative. Enteric pathogen panel was negative. CBC on 02/20/2024 showed white blood cell count of 5.1, hemoglobin of 11.5, hematocrit 36.1, platelets of 420. BMP showed creatinine of 1.08, GFR of 86, glucose 113, sodium 137, potassium 4.1. No repeat imaging was done of the patient's abdomen. Patient's biopsy/pathology results are still pending. Patient CBC today shows a white blood cell count of 5.8, hemoglobin 11.1 which is near his previous hemoglobin level. Platelets 424. BMP shows normal renal function and electrolytes. LFTs are normal. Lipase slightly elevated at 96 this is nonspecific. It was not elevated on his previous visit. 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 It also obstructs the orifice of the appendix which causes the appendix to be dilated. There is an enlarged periaortic lymph node adjacent to the left renal artery that measures 1.4 cm in diameter concerning for possible metastatic disease. Will discuss with general surgery but I think likely the patient again will need to be transferred. Discussed with Dr. Amin who reviewed the CTs and felt it would benefit the patient to be transferred back to the colorectal surgeon. I discussed the case with Dr. Pacheco who is on-call for colorectal surgery at the [facility]. She accepted the patient in transfer. The transfer line states that he would be first on the list and Dr. Pacheco was reassured that that usually means in the same day. Patient was counseled on the plan. NG tube will be placed. It took a few attempts to get the NG tube and due to patient not been able to tolerate this. He was given 2 mg of Ativan because he was feeling very anxious. This was successfully placed. Patient placed on low intermittent suction. KUB interpreted by myself shows NG tube is in good placement. Impression: 1. Small bowel obstruction 2. Cecal mass Lab Data Labs: Laboratory Results - last 24 hr 02/27/24 03:35 WBC 5.8 RBC 4.69 Hgb 11.1 L Hct 36.6 L MCV 78.0 L MCH 23.7 L MCHC 30.3 L RDW Std Deviation 46.8 H RDW Coeff of Chuy 16.5 H Plt Count 424 MPV 9.5 Immature Gran % (Auto) 0.200 Neut % (Auto) 64.9 Lymph % (Auto) 19.3 [place] % (Auto) 12.8 H Eos % (Auto) 1.9 Baso % (Auto) 0.9 Absolute Neuts (auto) 3.8 Absolute Lymphs (auto) 1.12 Nucleated RBC % 0 Sodium 138 Potassium 3.8 Chloride 103 Carbon Dioxide 27.0 Anion Gap 8 BUN 21 H Creatinine 1.20 Estim Creat Clear Calc 97.53 Est GFR (MDRD) Af Amer 84 Est GFR (MDRD) Non-Af 69 BUN/Creatinine Ratio 17.5 Glucose 118 H Calcium 9.0 Total Bilirubin 0.20 AST 26 ALT 44 Alkaline Phosphatase 82 Total Protein 7.8 Albumin 3.7 Globulin 4.1 Albumin/Globulin Ratio 0.9 Lipase 96 H Radiography Diagnostic Testing: Clinical Impression(s) from Imaging Studies Abdomen/Pelvis CT 02/27/24 03:26 IMPRESSION: 1. 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 This obstructs the ileocecal valve causing a distal small bowel obstruction. It obstructs the orifice of the appendix accounting for the dilated appendix. 2. Enlarged periaortic lymph node adjacent to the left renal artery that measures up to 1.4 cm in diameter may be due to metastatic disease. 3. Small fat-containing paraumbilical hernia. No bowel involvement. N.B. : The above Results were Read Back by Michael Reed MD to Bashir Moser DO, and understanding confirmed on 02/27/2024 04:31:49 (ET). Electronically Signed: Michael Reed MD at 4:34 EDT Reading Location ID and State: [facility] / [place] Tel , Service support , ADDENDUM: 02/27/24 0440 IMPRESSION: 1. 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 This obstructs the ileocecal valve causing a distal small bowel obstruction. It obstructs the orifice of the appendix accounting for the dilated appendix. 2. Enlarged periaortic lymph node adjacent to the left renal artery that measures up to 1.4 cm in diameter may be due to metastatic disease. 3. Small fat-containing paraumbilical hernia. No bowel involvement. N.B. : The above Results were Read Back by Michael Reed MD to Bashir Moser DO, and understanding confirmed on 02/27/2024 04:31:49 (ET). Electronically Signed: Michael Reed MD at 4:34 EDT , KUB X-Ray 02/27/24 05:50 IMPRESSION: NG tube is in good position in the stomach. Electronically Signed: Michael Reed MD at 6:25 EDT , Discharge Plan Triage Chief Complaint: Abd Pain ED Provider: Bashir Moser Dx/Rx/DC Orders Prescriptions: No Action NK Primary Care Provider: Care Physician,No Primary Referrals: Care Physician,No Primary [Primary Care Provider] - Print Language: Luxembourgish
[2024-02-27 03:40] LABS: Absolute Lymphocyte Count 1.12 X10^3/uL (0.83-4.51); Absolute Neutrophil Count 3.8 X10^3/uL (2.0-7.7); Basophil# 0.05 X10^3/uL; Basophil% 0.9 % (0-1); Eosinophil# 0.11 X10^3/uL; Eosinophils% 1.9 % (0-5); Hematocrit 36.6 % (40-54); Hemoglobin 11.1 g/dL (13.0-16.5); Lymphocyte # 1.12 X10^3/ul (0.83-4.51); Lymphocyte % 19.3 % (19-41); Mean Corp Hgb Conc 30.3 g/dL (32-36); Mean Corpuscular Hgb 23.7 pg (27.0-32.0); Mean Platelet Vol. 9.5 fl (6.2-12.0); Monocyte# 0.74 X10^3/uL; Monocyte% 12.8 % (0-10); NRBC Flagged by Analyzer 0 % (0-5); Neutrophil # 3.77 X10^3/uL (2.7-7.7); Neutrophil % 64.9 % (47-70); Platelet Count 424 K/mm3 (150-450); RBC Distribution Width CV 16.5 % (11.6-14.6); RBC Distribution Width SD 46.8 fl (35.1-43.9); Red Blood Count 4.69 M/mm3 (4.6-6.2); White Blood Count 5.8 K/mm3 (4.4-11.0)
[2024-02-27] MEDS: Morphine 4 MG/ML Syringe IV ×4 (03:43→14:31)
[2024-02-27] MEDS: Ondansetron 4 MG/2 ML Vial IV (03:43)
[2024-02-27] MEDS: 0.9% Normal Saline (1000mL) 1,000 ML 999 ML IV (03:44)
[2024-02-27 04:00] LABS: ALB/GLOB Ratio 0.9 RATIO (0.9-2.4); AST(SGOT) 26 U/L (15-37); Alanine Aminotransfer ALT/SGPT 44 U/L (16-61); Albumin, Serum 3.7 g/dL (3.2-5.0); Alkaline Phosphatase 82 U/L (45-117); Anion Gap 8 (5-15); BUN 21 mg/dL (7-18); BUN/Creat Ratio 17.5 RATIO (10-20); Chloride 103 mmol/L (98-107); EST Glomerular Filtration Rate 69 mL/min (>60); Est Glom Filt Rate - Afr Amer 84 mL/min (>60); Estimated Creatinine Clearance 97.53 ml/min; Globulin 4.1 g/dL (2.2-4.2); Glucose 118 mg/dL (74-106); Lipase 96 U/L (13-75); Potassium 3.8 mmol/L (3.5-5.1); Protein, Total 7.8 g/dL (6.4-8.2); Sodium Level 138 mmol/L (136-145)
[2024-02-27] MEDS: Oxymetazoline 0.05% 1 SPRAY SPRAY.BTL 2 SPRAY NASAL (04:51)
[2024-02-27] MEDS: Piperacil/Tazobactam 3.375 GM in 0.9% Normal Saline (50mL MB+) 50 ML IV (04:52)
[2024-02-27] MEDS: LORazepam 2 MG/ML Syringe IV (05:27)
[2024-02-27] MEDS: BENZOCAINE/MENTHOL 1 LOZENGE MUCOUS MEM (05:44)
--- NOTE | 2024-02-27 05:50 | RAD_ITS ---
EXAM: XR ABDOMEN, 1 VIEW CLINICAL INDICATION: NG PLACEMENT TECHNIQUE: Frontal supine view of the abdomen/pelvis. COMPARISON: No relevant prior studies available. FINDINGS: LOWER THORAX: No acute pathology. GASTROINTESTINAL TRACT: Unremarkable. Non-obstructive. No bowel or stomach distention. ORGANS: Unremarkable as visualized. No organomegaly. No abnormal calcifications. BONES/JOINTS: No acute pathology. SOFT TISSUES: No acute pathology. TUBES, LINES AND DEVICES: NG tube is in good position in the stomach. RAD/Abdomen Single View (Portable) IMPRESSION: NG tube is in good position in the stomach. Electronically Signed: Michael Reed MD at 6:25 EDT ,
--- NOTE | 2024-02-27 10:20 | ED.RN ---
CALLED [facility], WAITING ON DISCHARGES, NO BED AVAILABLE
--- NOTE | 2024-02-27 12:59 | ED.RN ---
[facility] CALLED FOR UPDATED VS ON PT
[2024-02-27] MEDS: HYDROmorphone 0.5 MG/0.5 ML SYRINGE IV (16:09)
[2024-02-27] MEDS: 0.9% Normal Saline (1000mL) 1,000 ML 150 ML IV (16:12)
--- NOTE | 2024-02-27 19:02 | ED.RN ---
I CALLED AT 1900, PT HAS A BED ASSIGNMENT, IS IN THE PROCESS OF BEING CLEANED
[2024-02-27] MEDS: HYDROmorphone 1 MG/ML Syringe IV (20:35)
== END 2024-02-27 20:38 | disposition short-term general hospital (02) ==
LOC: ED 03:38
PROVIDERS: Emergency Provider Student in an Organized Health Care Education/Training Program; Visit Provider Student in an Organized Health Care Education/Training Program
DX: K56.609 Unspecified intestinal obstruction, unspecified as to partial versus complete obstruction (principal); R19.09 Other intra-abdominal and pelvic swelling, mass and lump; R59.0 Localized enlarged lymph nodes; Z87.891 Personal history of nicotine dependence
CPT/HCPCS: 74018; 74177; 80053; 83690; 85025; 96361; 96365; 96375; 96376; 99285; J7030; J7050; Q9967; A4216; J2405

== ENCOUNTER 2025-06-01 21:03 | Emergency (ER) | payer OTHER, SELFPAY ==
[2025-06-01 21:05] VITALS: BP 172/122; PULSE 86; RESP 20; TEMP 36.8; O2SAT 100
--- NOTE | 2025-06-01 21:35 | EX.ED.DYSGE1 ---
HPI History of Present Illness Chief Complaint: Abd Pain Narrative Narrative: Chief complaint and HPI: 45-year-old male with history of hemicolectomy with reversal in November secondary to colon cancer presents for evaluation of abdominal pain. Onset of symptoms at 4 PM. States his last bowel movement was this morning which was constipated. Pain is progressively worsening. Associated symptom is bloating and nausea/vomiting. He denies any fever, chills, chest pain, shortness of breath, dysuria. Review of systems: See HPI Medications: As listed on the chart Allergies: As listed on the chart PFSH: Per chart Vital signs: As listed on the chart. Reviewed. Physical exam: Gen: A&O x3, uncomfortable secondary to pain Head: Normocephalic, atraumatic Eyes: No sclera icterus, conjunctiva clear ENT: Moist mucous membranes CV: RRR, no murmurs Resp: Lungs CTA BL, no w/r/c GI: Abd soft, non-distended, tender to palpation diffusely, no rebound or rigidity Musc: Full ROM, no deformity Skin: Warm, dry Neuro: Alert, oriented, grossly intact, sensation intact Psych: Cooperative, appropriate mood and affect PFSH PFSH Medical History Mass of colon Nausea vomiting and diarrhea Abdominal pain Back pain Smoker Home Medications ?Medication ?Instructions ?Recorded ?Last Taken ?Type ferrous sulfate 325 mg (65 mg 325 mg PO DAILY 06/01/25 06/01/25 History iron) tablet (FeroSul) hydroxyzine pamoate 25 mg capsule 25 mg PO TID PRN PRN itch 06/01/25 Unknown History loperamide 2 mg capsule 2 mg PO 4X/DAY PRN PRN diarrhea 06/01/25 Unknown History sertraline 100 mg tablet 100 mg PO DAILY 06/01/25 06/01/25 History Allergy/AdvReac Type Severity Reaction Status Date / Time No Known Allergies Allergy Verified 02/27/24 03:21 Family History Other Heart disease Surgical History Hx of hand surgery Social History Smoking Status: Former smoker EXAM Physical Exam Const Vital Signs: 06/01/25 21:05 06/01/25 22:05 06/01/25 23:00 Temperature 98.2 F Temperature Source Oral Pulse Rate 86 68 68 Respiratory Rate 20 H 16 16 Blood Pressure 172/122 H 167/103 H 178/106 H Blood Pressure Mean 138 124 130 Pulse Ox 100 100 100 Oxygen Delivery Method Room Air Room Air Room Air MDM MDM MDM Narrative Medical decision making narrative: 45-year-old male with history of hemicolectomy with reversal in November secondary to colon cancer presents for evaluation of abdominal pain. Onset of symptoms at 4 PM. States his last bowel movement was this morning which was constipated. Pain is progressively worsening. Associated symptom is bloating and nausea/vomiting. Differential diagnosis includes but is not limited to bowel obstruction, constipation, colitis, pancreatitis, UTI, urolithiasis. NS bolus, morphine, Zofran ordered. Laboratory workup ordered including CT abdomen pelvis. CBC without leukocytosis or anemia. CMP shows renal insufficiency/mild FRANCHESKA with creatinine of 1.56. Patient's baseline around 1.2. No transaminitis. Lipase unremarkable. Lactic acid 2.7. I suspect this is more due to dehydration and infection. Patient states he is drink little today due to the pain. Patient receiving fluids. UA positive for blood and ketones which is consistent with dehydration. Negative for UTI or bacteria. CT abdomen pelvis shows 6 mm obstructing calculus at the right UVJ resulting in moderate hydroureteronephrosis. Hepatomegaly with fatty infiltration. On reevaluation patient's pain has improved with morphine and Dilaudid. He was updated of all results. Patient was p.o. challenged. And tolerated fluid intake. However given the size of the stone with hydroureteronephrosis and mild FRANCHESKA, urology was consulted and I spoke with Dr. Proano. Hawk with patient discharging home. Follow-up in his office. Patient was updated of the plan and confirmed understanding. He is comfortable discharging home. Will send him home with narcotic pain medicine, Zofran, Flomax. Strict return precautions were explained. He confirmed understand the plan. Patient will discharge home. Impression: 1. 6 mm urolithiasis at the right UVJ with moderate hydroureteronephrosis 2. Renal insufficiency/mild FRANCHESKA 3. Dehydration Lab Data Labs: Laboratory Results - last 24 hr 06/01/25 06/01/25 21:20 21:50 WBC 10.1 RBC 5.40 Hgb 15.0 Hct 45.0 MCV 83.3 MCH 27.8 MCHC 33.3 RDW Std Deviation 42.8 RDW Coeff of Chuy 14.0 Plt Count 259 MPV 10.1 Immature Gran % (Auto) 0.200 Neut % (Auto) 77.4 H Lymph % (Auto) 12.2 L [place] % (Auto) 9.6 Eos % (Auto) 0.1 Baso % (Auto) 0.5 Absolute Neuts (auto) 7.9 H Absolute Lymphs (auto) 1.24 Nucleated RBC % 0 Sodium 139 Potassium 3.7 Chloride 101 Carbon Dioxide 18.9 L Anion Gap 19 H BUN 24 H Creatinine 1.56 H Est GFR (MDRD) Non-Af 55 L BUN/Creatinine Ratio 15.3 Glucose 119 H Lactic Acid 2.7 H* Calcium 10.0 Total Bilirubin 0.66 AST 32 ALT 28 Alkaline Phosphatase 81 Total Protein 8.3 Albumin 4.9 Globulin 3.3 Albumin/Globulin Ratio 1.5 Lipase 51 Urine Color Straw Urine Clarity Clear Urine pH 8.0 Ur Specific [place] 1.010 Urine Protein 15 H Urine Glucose (UA) Normal Urine Ketones 15 H Urine Occult Blood 10 H Urine Nitrite Negative Urine Bilirubin Negative Urine Urobilinogen Normal Ur Leukocyte Esterase Negative Urine RBC 0 SEEN Urine WBC 0 SEEN Ur Squamous Epith Cells 0 SEEN Urine Bacteria 0 SEEN Urine Mucus 0 SEEN Radiography Diagnostic Testing: Clinical Impression(s) from Imaging Studies Abdomen/Pelvis CT 06/01/25 22:00 IMPRESSION: 1. 6 mm obstructing calculus of the right UVJ resulting in moderate hydroureteronephrosis. 2. Hepatomegaly with fatty infiltration. Reading Location: [id number] Discharge Plan Triage Chief Complaint: Abd Pain ED Provider: Bob Graham Dx/Rx/DC Orders Prescriptions: No Action loperamide 2 mg capsule 2 mg PO 4X/DAY PRN PRN (Reason: diarrhea) sertraline 100 mg tablet 100 mg PO DAILY hydroxyzine pamoate 25 mg capsule 25 mg PO TID PRN PRN (Reason: itch) ferrous sulfate [FeroSul] 325 mg (65 mg iron) tablet 325 mg PO DAILY Primary Care Provider: Medardo Ott Referrals: Medardo Ott MD [Primary Care Provider, Family Practice] Print Language: German
[2025-06-01] MEDS: 0.9% Normal Saline (1000mL) 1,000 ML 999 ML IV (21:50)
[2025-06-01 21:57] LABS: Hematocrit 45.0 % (40-54); Hemoglobin 15.0 g/dL (13.0-16.5); Immature Granulocytes Count 0.020 X10^3/uL (0.0-0.0); Mean Corp Hgb Conc 33.3 g/dL (32-36); Mean Corpuscular Volume 83.3 fL (80-94); Mean Platelet Vol. 10.1 fl (6.2-12.0); NRBC Flagged by Analyzer 0 % (0-5); Platelet Count 259 K/mm3 (150-450); RBC Distribution Width CV 14.0 % (11.6-14.6); RBC Distribution Width SD 42.8 fl (35.1-43.9); Red Blood Count 5.40 M/mm3 (4.6-6.2); White Blood Count 10.1 K/mm3 (4.4-11.0)
--- NOTE | 2025-06-01 22:00 | CT_ITS ---
EXAM: CT Abdomen and Pelvis With Intravenous Contrast CLINICAL INDICATION: ABDOMINAL PAIN. HISTORY OF HEMICOLECTOMY FOR CA TECHNIQUE: Axial computed tomography images of the abdomen and pelvis with intravenous contrast. This CT exam was performed using one or more of the following dose reduction techniques: automated exposure control, adjustment of the mA and/or kV according to patient size, and/or use of iterative reconstruction technique. COMPARISON: CT Abdomen Pelvis dated 02/27/2024 FINDINGS: LUNG BASES: Unremarkable. No mass. No consolidation. ABDOMEN: LIVER: Hepatomegaly with fatty infiltration. GALLBLADDER AND BILE DUCTS: Unremarkable. No calcified stones. No ductal dilation. PANCREAS: Unremarkable. No mass. No ductal dilation. SPLEEN: Unremarkable. No splenomegaly. ADRENALS: Unremarkable. No mass. KIDNEYS AND URETERS: 6 mm obstructing calculus of the right UVJ resulting in moderate hydroureteronephrosis. STOMACH AND BOWEL: Status post resection of the cecal mass. No obstruction. PELVIS: APPENDIX: No findings to suggest acute appendicitis. BLADDER: Unremarkable. No mass. REPRODUCTIVE: Unremarkable as visualized. ABDOMEN and PELVIS: INTRAPERITONEAL SPACE: Unremarkable. No free air. No significant fluid collection. BONES/JOINTS: No acute fracture. No dislocation. SOFT TISSUES: Unremarkable. VASCULATURE: Unremarkable. No abdominal aortic aneurysm. LYMPH NODES: Unremarkable. No enlarged lymph nodes. CT/Abdomen/Pelvis W IV Cont ONLY IMPRESSION: 1. 6 mm obstructing calculus of the right UVJ resulting in moderate hydrourete ronephrosis. 2. Hepatomegaly with fatty infiltration. Reading Location: [id number]
[2025-06-01 22:03] LABS: Mucous, Urine 0 SEEN /hpf (<or=2+); Red Blood Cells-Urine 0 SEEN /hpf (0-5); Squamous Epithelial Cells - UA 0 SEEN /hpf (0-5)
[2025-06-01 22:05] VITALS: BP 167/103; PULSE 68; RESP 16; O2SAT 100
[2025-06-01 22:19] LABS: AST(SGOT) 32 U/L (<=37); Alanine Aminotransfer ALT/SGPT 28 U/L (<=46); Albumin, Serum 4.9 g/dL (3.5-5.0); Alkaline Phosphatase 81 U/L (40-129); Anion Gap 19 (5-15); BUN 24 mg/dL (4-19); BUN/Creat Ratio 15.3 RATIO (10-20); Calcium,Total 10.0 mg/dL (7.6-11.0); Carbon Dioxide 18.9 mmol/L (21.0-32.0); Chloride 101 mmol/L (98-108); Globulin 3.3 g/dL (2.2-4.2); Glucose 119 mg/dL (70-99); Lipase 51 U/L (13-75); Potassium 3.7 mmol/L (3.3-5.1)
[2025-06-01 22:25] LABS: Color, Urine Straw (Yellow); Glucose, Dipstick Normal (Normal); Ketone-Dipstick 15 mg/dl (Negative); Leukocyte Esterase-Dipstick Negative /ul (Negative); Nitrite-Dipstick Negative (Negative); Occult Blood-Urine 10 /ul (Negative); Protein-Dipstick 15 mg/dl (Negative); Specific Gravity, Urine 1.010 (1.002-1.030); Urine Bilirubin Dipstick Negative (Negative)
[2025-06-01 23:00] VITALS: BP 178/106; PULSE 68; RESP 16; O2SAT 100
[2025-06-01] MEDS: HYDROmorphone 0.5 MG/0.5 ML SYRINGE IV (23:10)
[2025-06-01 23:53] VITALS: BP 129/76; PULSE 92; RESP 14; TEMP 36.6; O2SAT 100
[2025-06-02 01:59] LABS: Reflex Lactate? Y
== END 2025-06-02 00:35 | disposition home or self-care (01) ==
PROVIDERS: Emergency Provider Surgery; PCP Family Medicine; Visit Provider Surgery
DX: N13.2 Hydronephrosis with renal and ureteral calculous obstruction (principal); N17.9 Acute kidney failure, unspecified; Z87.891 Personal history of nicotine dependence; E86.0 Dehydration; Z90.49 Acquired absence of other specified parts of digestive tract; Z85.038 Personal history of other malignant neoplasm of large intestine; Z79.899 Other long term (current) drug therapy
CPT/HCPCS: 74177; 80053; 81001; 83605; 83690; 85025; 96361; 96374; 96375; 99283; Q9967; A4216; J2405